=== PATIENT | male | born 1970 | race Caucasian/White ===

== ENCOUNTER 2016-05-24 21:01 | Emergency (ER) | payer MEDICAID ==
[~2016-05-24] VITALS: Ht 160 cm; Wt 86.2 kg
[2016-05-24 21:27] VITALS: BP 131/76
--- NOTE | 2016-05-24 22:45 | NUR ---
TO ER BED 6
--- NOTE | 2016-05-24 22:47 | NUR ---
PT IS 46/M BIB TO ED WITH C/O RT.JAW SWOLLEN AND PAIN X 3 DAYS. PT STATES NO MED HX. DENIES N/V/D; SKIN IS PINK/WARM/DRY; AAOX4 WITH EVEN AND STEADY GAIT; LUNGS CLEAR BL; HR EVEN AND REGULAR; PT DENIES ANY FEVER, CP, SOB, OR COUGH AT THIS TIME; PATIENT STATES PAIN OF 6/10 AT THIS TIME; VSS; PATIENT POSITIONED FOR COMFORT; HOB ELEVATED; BEDRAILS UP X2; BED DOWN. ER MD MADE AWARE OF PT STATUS.
[2016-05-24 23:32] VITALS: BP 122/65
== END 2016-05-24 23:32 | disposition home or self-care (01) ==
LOC: MED 21:01
DX: K04.7 Periapical abscess without sinus (principal)